=== PATIENT | female | born 1955 | race Caucasian/White ===

== ENCOUNTER → 2019-11-15 07:36 | Outpatient (CLI) | payer SELFPAY ==
--- NOTE | 2019-11-15 07:42 | CT_ITS ---
INDICATION: LEFT CHOLESTEATOMA. EXAMINATION: CT IAC TEMPORAL BONES - CT IACs W/O Contrast Injection TECHNIQUE:Routine noncontrast CT protocol was performed of the internal auditory canals and temporal bones. 2-D reformats were performed by the technologist. A radiation dose optimization technique was used for this scan. IV Contrast dosage and agent: None. COMPARISON: None. FINDINGS: Nasopharynx and paranasal sinuses are clear. Right temporal bone is normal. External auditory canal, middle ear and mastoid air cells are well aerated. There is hypertrophic appearance of the soft tissue/cartilaginous structures of the external ear with narrowing of the ostium of the external auditory canal. Left temporal bone is normal. There is minimal opacification of mastoid air cells. There is no osseous destructive change. Tympanic membrane is normal. There is minimal amount of opacity in the lateral epitympanic space. There is hypertrophic in folded appearance of the soft tissue/cartilaginous structures of the external ear with narrowing of the ostium of the external auditory canal. CT/Orb Sella Post Fossa Ear w/o IMPRESSION: 1. No findings of cholesteatoma on CT. 2. In the presence of high pretest probability for cholesteatoma MRI is the next study. 3. 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 Electronically Signed: Mario Posadas, at 8:48 EST Tel , Service support ,
== END ==
PROVIDERS: PCP Family Medicine; Referring Provider Otolaryngology; Visit Provider Otolaryngology
DX: H71.92 Unspecified cholesteatoma, left ear (principal)
CPT/HCPCS: 70480

== ENCOUNTER 2020-05-07 06:04 | Day surgery (SDC) | payer SELFPAY ==
--- NOTE | 2020-05-01 16:16 | EKG12_ITS ---
Test Reason : PREOP Blood Pressure : / mmHG Vent. Rate : 064 BPM Atrial Rate : 064 BPM P-R Int : 156 ms QRS Dur : 090 ms QT Int : 424 ms P-R-T Axes : 011 057 034 degrees QTc Int : 437 ms Normal sinus rhythm Normal ECG Confirmed by SHAZIA EDWARDS, KEELY ([id number]), photography editor KESHAV FRANCO ([id number]) on 05/04/2020 2:39:27 PM Referred By: Matty Chowdhury Confirmed By:KEELY MCCRAY MD
[2020-05-01 16:34] LABS: Hematocrit 42.8 % (37-47); Hemoglobin 13.8 g/dL (12.0-15.0); Mean Corp Hgb Conc 32.2 g/dL (32-36); Mean Corpuscular Hgb 30.1 pg (27.0-32.0); Mean Corpuscular Volume 93.2 fL (81-99); Mean Platelet Vol. 10.6 fl (6.2-12.0); Platelet Count 217 K/mm3 (150-450); RBC Distribution Width CV 12.7 % (11.6-14.6); RBC Distribution Width SD 43.5 fl (35.1-43.9); Red Blood Count 4.59 M/mm3 (4.2-5.4); White Blood Count 5.3 K/mm3 (4.4-11.0)
[2020-05-01 17:26] LABS: Anion Gap 3 (5-15); BUN 20 mg/dL (7-18); BUN/Creat Ratio 17.7 RATIO (10-20); Calcium,Total 9.2 mg/dL (8.5-10.1); Chloride 110 mmol/L (98-107); Creatinine, Serum 1.13 mg/dL (0.55-1.02); EST Glomerular Filtration Rate 51 mL/min (>60); Est Glom Filt Rate - Afr Amer 62 mL/min (>60); Glucose 102 mg/dL (74-106); Potassium 4.2 mmol/L (3.5-5.1); Sodium Level 142 mmol/L (136-145)
[2020-05-07] VITALS (9 sets, daily range): BP systolic 116–141; BP diastolic 61–84; PULSE 61–90; RESP 16–18; TEMP 36.2–36.6; O2SAT 93–97; BMI 32.8
[2020-05-07] MEDS: Lactated Ringers 1,000 ML 100 ML IV ×2 (06:40→12:59)
--- NOTE | 2020-05-07 07:40 | DCINST_ITS ---
You will use the following diet at home:: No restrictions Your food should be the consistency of: Regular Discharge Activity: Return to Normal Activity Additional Activity Instructions:: Remove dressing tomorrow morning. Replace cotton ball to catch the drainage. Keep the back of the ear dry until Thursday Allergies/Adverse Reactions: Allergies No Known Allergies Allergy (Verified 05/04/20 14:25) Medications to take at Discharge Calcium (Elemental) [Os-Jr 500] 500 mg PO DAILY@0800 05/04/20 Cayenne Pepper Pill 1 cap PO DAILY 05/04/20 Latanoprost/Pf [Latanoprost 0.005% Eye Drop] 7.5 ml OP QHS 05/04/20 Lutein [Natural Lutein] 20 mg PO DAILY 05/04/20 Om3/Dha/Epa/Cod Liver Oil/A/D3 [Cod Liver Oil Softgel] 1 ea PO DAILY 05/04/20 Soy Isoflavone [Soy Isoflavones] 40 mg PO DAILY 05/04/20 Primary Care Physician: Flo De La Torre MD [Primary Care Provider] - Test Results: Test results from this visit will be discussed in further detail at your follow- up appointment, if applicable.
[2020-05-07] MEDS: Epinephrine (1 mg/ml) 1 MG/ML VIAL (08:14)
[2020-05-07] MEDS: Ciprofloxacin 0.3% 2.5ml Bottle 1 DRP (08:15)
[2020-05-07] MEDS: BACITRACIN/POLYMYXIN B 15 GM Tube 1 APPLIC (10:19)
--- NOTE | 2020-05-07 10:55 | PCM.OPRPT ---
Report of Operation Date of Procedure: 05/07/20 Pre-Operative Diagnosis: left chronic otitis media. left conductive hearing loss. left cholesteatoma Post-Operative Diagnosis: same Surgery/Procedure Performed:: Left tympanomastoidectomy (canal wall down) with ossicular reconstruction and harvest of cartilage graft Description of Surgical Findings:: missing long process of the incus. Chorda sacrificed. Intact facial nerve. sclerotic mastoid Type of Anesthesia:: General Anesthesiologist: Edouard Brice Specimen's removed: none Estimated Blood Loss (mL): minimal Description of Procedure: Patient was taken to the operating room on 05/07/20. She was placed in supine position on the operating table. She was given sufficient general endotracheal anesthesia. The table was turned 90 degrees in a clockwise fashion. The left ear was prepped and draped sterilely. 1% lidocaine with epinephrine was injected into the tragus, meatus and post auricular area. Next a speculum turned patient's right external auditory canal and the external auditory canal skin was injected with 1% lidocaine with epinephrine. Next I made an incision in the post auricular crease with a 15 blade. Hemostasis was achieved with bipolar cautery. A standard T-shaped incision was made with a 15 blade. A [place] elevator was used to elevate the periosteum. Temporalis fascia was harvested sharply and dried on a cutting block. Next the external auditory canal skin was elevated using a elevator down to the annulus. I then made back cuts in the external auditory canal skin with a round [place] blade as well as a straight [place] blade. The vascular strip was then brought out out of the external auditory canal and placed in self-retaining retractors. Next the tip of the tympanomeatal flap was elevated sharply. The annulus was kept intact. The chorda tympani nerve was seen directly moving into cholesteatoma. There was no long process of the incus. I then performed mastoidectomy. Using serially smaller cutting and eyad burs mastoidectomy was performed. I elected to take the canal wall down given the severity of her disease. Cholesteatoma was removed bluntly from the aditus ad antrum and mastoid. Next I removed the remnant of the incus. The facial nerve was found to be intact. I carefully peeled the remnant of the tympanic membrane off of the head of the stapes and stapedial tendon. The stapes was left unharmed. The chorda tympani nerve was sacrificed. Next the wound was irrigated with saline and all bone dust was removed. I performed a meatoplasty by placing back cuts with an 11 blade into the conchal cartilage. The conchal cartilage cartilage was harvested and dried on a cutting block. Next I removed the mucoperichondrium of one side of the cartilage. The denuded side was placed onto the stapedial head. Gelfoam was placed into the middle ear.The remnant tympanic membrane was then redraped. I use some temporalis fascia superiorly and draped this over the facial ridge. Gel foam was then placed on top of the graft. I then filled the external auditory canal and mastoid bowl with antibiotic ointment. The skin of the external auditory canal was then draped into the mastoid cavity. An [place] pack was placed into the external auditory canal. The periosteum was closed with 4-0 Vicryl. The skin was closed with 4-0 Vicryl subcuticular. Steri-Strips and a [place] dressing were then applied. The patient was then awoken and brought to the recovery room in stable condition. Blood loss minimal,replacement none,sponge needle and instrument counts correct were correct at the end of the procedure.
== END 2020-05-07 14:09 | disposition home or self-care (01) ==
LOC: SDC 06:07 → AC 06:08
PROVIDERS: PCP Family Medicine; Referring Provider Otolaryngology; Visit Provider Otolaryngology
PROC: (CPT 69642; principal; 2020-05-07 07:00)
DX: H90.12 Conductive hearing loss, unilateral, left ear, with unrestricted hearing on the contralateral side (principal); H71.92 Unspecified cholesteatoma, left ear; H66.3X2 Other chronic suppurative otitis media, left ear
CPT/HCPCS: 00120; 21235; 69646; 36415; 80048; 85027; 87635; 93005; 94799; J7120; J2405; U0003